=== PATIENT | female | born 1965 | race Caucasian/White ===

== ENCOUNTER 2019-11-01 06:24 | Inpatient (IN) ==
--- NOTE | 2019-10-22 14:03 | Anesthesiology Consultation ---
Date of Service October 22, 2019 Assessment & Plan (1) Encounter for pre-operative examination: COVID Status: As of nurse assessment 10/21, patient denies known exposure/sick contacts, symptoms, or testing for coronavirus. 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 Chart Review Chart Review: Acceptable Risk for Surgery and Patient NOT seen in Pre Admission Testing History Surgery Operation Date: 11/01/19 08:40 Proposed Procedures p Bilateral breast Mastectomy with Bilateral [place] Lymph Node Biopsy, Injection Only - Deon Craven MD, FACS Height/Weight Height: 5 ft 3 in Weight: 81.193 kg Allergies Allergy/AdvReac Type Severity Reaction Status Date / Time No Known Allergies Allergy Verified 10/22/19 12:04 Medications Home Medications Medication Instructions Recorded Confirmed Last Taken ascorbic acid (vitamin C) 500 mg 500 mg PO PM tab 08/02/19 10/22/19 Unknown tablet biotin 1,000 mcg chewable tablet 2,000 mcg PO PM tab 08/02/19 10/22/19 Unknown calcium-vitamin D3-vitamin K 500 1 tab PO PM 08/02/19 10/22/19 Unknown mg-100 unit-40 mcg chewable tablet letrozole 2.5 mg tablet 2.5 mg PO QAM 10/04/19 10/22/19 Unknown calcium carbonate-vitamin D3 1 cap PO PM 10/22/19 10/22/19 Unknown [Calcium 600 + D(3)] multivit with min-folic acid 200 mcg PO PM 10/22/19 10/22/19 Unknown [Women's Multivitamin Gummies] vitamin E 100 unit PO PM 10/22/19 10/22/19 Unknown Past Medical History Medical History Anxiety Cancer LEFT BREAST CANCER Cardiac murmur NO MURMUR NOTED PER ANESTHESIA EVALUATION ON 04/06/18 AT [facility] 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 Brother Family history of diabetes mellitus Unknown Bile duct carcinoma Past Surgical History Surgical History History of bilateral tubal ligation History of breast biopsy LEFT History of section X3 History of lumpectomy of left breast with senteniel nodes Social History Smoking Status: Former smoker tobacco type: cigarettes Smoking cigarettes per day: 20 Do You Dip or Chew Tobacco: No Smoking End Date: 2017 Hx Alcohol Use: No alcohol intake frequency: holidays/special occasions only Hx Substance Use: No substance use type: does not use Testing Laboratory Results 10/04/19 WBC: 6.91 H/H: 13.0/39.4 PLATELETS: 287 SODIUM: 141 POTASSIUM: 4.1 CHLORIDE: 109 CO2: 27 BUN: 10 CREATININE: 0.74 GLUCOSE: 104 Electrocardiogram Date: 10/19/19 Findings: + NSR @ (71bpm with sinus arrhythmia)
[~2019-11-01 06:24] MED LIST: CEFAZOLIN 2000MG 2,000 MG/15 ML SYR IV SCH; LR 15ML/HR IV SCH
--- NOTE | 2019-11-01 06:51 | History & Physical Report ---
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 Escamilla has followed the patient Allergies Allergy/AdvReac Type Severity Reaction Status Date / Time No Known Allergies Allergy Verified 10/22/19 12:04 Home Medications Home Medications Medication Instructions Recorded Confirmed Type ascorbic acid (vitamin C) 500 mg 500 mg PO PM tab 08/02/19 11/01/19 History tablet biotin 1,000 mcg chewable tablet 2,000 mcg PO PM tab 08/02/19 11/01/19 History calcium-vitamin D3-vitamin K 500 1 tab PO PM 08/02/19 11/01/19 History mg-100 unit-40 mcg chewable tablet letrozole 2.5 mg tablet 2.5 mg PO QAM 10/04/19 11/01/19 History calcium carbonate-vitamin D3 1 cap PO PM 10/22/19 11/01/19 History [Calcium 600 + D(3)] multivit with min-folic acid 200 mcg PO PM 10/22/19 11/01/19 History [Women's Multivitamin Gummies] vitamin E 100 unit PO PM 10/22/19 11/01/19 History Past Med/Surg History Medical History Anxiety Cancer LEFT BREAST CANCER Cardiac murmur NO MURMUR NOTED PER ANESTHESIA EVALUATION ON 04/06/18 AT [facility] 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 Other Information That Helps Us Care for You: No Feels Safe at Home: Yes Safety Concerns: Feels Safe At This Time Smoking Status: Former smoker (Quit 02/2018) Tobacco Type: cigarettes ; Cigarettes Per Day: 20 ; Do You Dip or Chew Tobacco: No ; Smoking End Date: 2017 ; Second Hand Exposure: No ; Tobacco Cessation Education Requested by Patient: No Hx Alcohol Use: No Hx Substance Use: No Review of Systems All systems reviewed & are unremarkable except as noted in HPI & below Physical Exam Constitutional: well developed and well nourished; no acute distress Eyes: + anicteric sclerae Respiratory: normal respiratory effort; no respiratory distress Cardiovascular: Rate/Rhythm: regular rate Gastrointestinal (Abdomen): Percussion/Palpation: abdomen soft Musculoskeletal: Gait: normal gait Skin: no rashes, warm and dry Neurologic: awake Psychiatric: Orientation: alert
[2019-11-01] MEDS ORDERED: METHYLENE BLUE 0.5% 10 ML VIAL ONE (08:15)
[2019-11-01] MEDS ORDERED: BUPIVACAINE 0.5 % 5 MG/1 ML MPF 30ML VIAL ONE (08:15)
[2019-11-01] MEDS ORDERED: MEPERIDINE HCL 25 MG/ML CARP/VIAL IV PRN (08:47)
[2019-11-01] MEDS ORDERED: ATROPINE SULFATE 0.1 MG/ML 10ML SYR IV PRN (08:47)
[2019-11-01] MEDS ORDERED: HYDROmorphone INJ 1 MG/ML SYRINGE IV PRN (08:47)
[2019-11-01] MEDS ORDERED: ONDANSETRON INJ 2 MG/ML 2 ML VIAL IV PRN ×2 (08:47→11:33)
[2019-11-01] MEDS ORDERED: PHENYLEPHRINE 100MCG/ML 5ML SYR IV PRN (08:47)
[2019-11-01] MEDS ORDERED: LABETALOL HCL IV 5 MG/ML 20ML IV PRN (08:47)
[2019-11-01] MEDS ORDERED: ePHEDrine sulfate 50 MG/ML AMP IV PRN (08:47)
[2019-11-01] MEDS ORDERED: SCOPOLAMINE 1.5 MG TDSY TD ONE ×2 (08:58→09:15)
[2019-11-01] MEDS ORDERED: MIDAZOLAM HCL 1 MG/ML 2ML VIAL ONE (09:12)
--- NOTE | 2019-11-01 09:18 | Nuclear Medicine Report ---
LYMPHOSCINTIGRAPHY OF THE BILATERAL BREASTS CLINICAL HISTORY: Recurrent left-sided breast cancer. PROCEDURE: RIGHT BREAST: Using standard sterile technique, 4 intradermal and one deep injection of 0.506 mCi of Lymphoseek was placed in the right breast. The patient tolerated the procedure well. There were no im mediate complications. The patient was subsequently transported to the surgical suite. No imaging was obtained at the referring physician's request. LEFT BREAST: Using standard sterile technique, 4 intradermal and one deep injection of 0.474 mCi of Lymphoseek was placed in the left breast. The patient tolerated the procedure well. There were no immediate complic ations. The patient was subsequently transported to the surgical suite. No imaging was obtained at th e referring physician's request. IMPRESSION: Completed bilateral breast injection of lymphoseek. No images were obtained.. ACT 112: Negative or not required by law. Electronically signed by: Kaveh Mendez M.D. 11/01/2019 9:16 AM
[2019-11-01] MEDS ORDERED: fentaNYL citrate 100 MCG/2 ML VIAL ONE ×2 (09:22→09:44)
[2019-11-01] MEDS ORDERED: PROPOFOL IV EMULSION 10 MG/ML 20 ML VIAL IV ONE (09:34)
[2019-11-01] MEDS ORDERED: LIDOCAINE HCL 2% 2 ML VIAL/AMP(20MG/ML) INFIL ONE (09:34)
[2019-11-01] MEDS ORDERED: DEXAMETHASONE SOD INJ 4 MG/ML VIAL ONE (09:34)
[2019-11-01] MEDS ORDERED: ONDANSETRON INJ 2 MG/ML 2 ML VIAL ONE (09:35)
[2019-11-01] MEDS ORDERED: PHENYLEPHRINE 100MCG/ML 5ML SYR ONE (10:03)
[2019-11-01] MEDS ORDERED: ESMOLOL HCL INJ 10 MG/ML 10ML VIAL IV ONE (10:43)
--- NOTE | 2019-11-01 11:27 | Post Operative Brief Note ---
PG Immediate Post Op with CF Date of Surgery November 01, 2019 Pre & Post Diagnosis Operation Date: 11/01/19 09:30 Pre-Op Diagnosis: Recurrent Left Breast DCIS Post-Op Diagnosis: Recurrent Left Breast DCIS I identified the patient and participated in the time-out.: Yes Procedure Operation Date: 11/01/19 09:30 Actual Procedures p Bilateral Breast Mastectomy with Bilateral [place] Lymph Node Biopsy(Bilateral) - Deon Craven MD, FACS Surgeon Deon Craven MD, FACS Geology Instructor Jordy Johnson Estimated Blood Loss 20 Findings Consistent with Post-Op Diagnosis Specimens Specimen Description: FS #1 - right sentinel lymph node Permanent specimens (sent fresh) A: right breast, silk suture-lateral B: left breast, silk suture-lateral, methylene blue inferior margin Drains Payan Catheter (16fr payan catheter placed without difficulty, payan demonstrates clear yellow urine. Output measured and recorded by anesthesia.) and Yoni-Hopson Drain (15fr x1 per side)
[2019-11-01] MEDS ORDERED: HYDROCODONE/ACETAMOPHEN 5/325MG TAB PO PRN (11:28)
[2019-11-01] MEDS ORDERED: MoRPHine SULFATE 2 MG/ML CARP IV PRN (11:28)
[2019-11-01] MEDS ORDERED: MoRPHine SULFATE 4 MG/ML 1 ML CARP\\VIAL IV PRN (11:28)
[2019-11-01] MEDS ORDERED: IBUPROFEN 600 MG TAB PO PRN (11:28)
[2019-11-01] MEDS ORDERED: ACETAMINOPHEN 325 MG TAB PO PRN (11:28)
[2019-11-01] MEDS ORDERED: PROMETHAZINE HCL 12.5 MG in SODIUM CHLORIDE 0.9% 50 ML IV PRN (11:33)
[2019-11-01] MEDS ORDERED: PROMETHAZINE HCL 25 MG in SODIUM CHLORIDE 0.9% 50 ML IV PRN (11:33)
--- NOTE | 2019-11-01 11:57 | Operative Report (OR) ---
DATE OF OPERATION: 11/01/2019 NAME OF THE OPERATION: Bilateral mastectomy with right sentinel lymph node biopsy. PREOPERATIVE DIAGNOSIS: Recurrent ductal carcinoma in situ of left breast. POSTOPERATIVE DIAGNOSIS: Recurrent ductal carcinoma in situ of left breast. STAFF SURGEON: Deon Craven MD. ASSISTANTS: Andreas Velasco PA-C and Monik Savage PA-C. ANESTHESIA: General LMA. DESCRIPTION OF PROCEDURE: The patient was brought in the operating room and placed on the operating table in supine position. Her chest was prepped and draped in usual fashion. The right side was approached first. Preoperatively, she had injections for sentinel lymph node biopsy. My assistants helped with prepping, draping, mastectomy, sentinel lymph node biopsy and closure of the wounds. Incision was made in the right axilla using 0.5% plain Marcaine to anesthetize skin and subcutaneous tissue. Dissection was carried very deep down into the axilla on the right side using the Neoprobe identifying the sentinel lymph node, which was sent for frozen section. The frozen section was negative. During the frozen section, we performed mastectomy on the right side, making an elliptical incision from sternum to axilla around the nipple areolar complex and then dissecting the breast tissue away from the subcutaneous tissue superiorly and inferiorly down to the pectoralis major muscle and then dissecting the breast tissue off the pectoralis major muscle. The right breast was marked with a silk suture lateral. At this point, the site was irrigated and then packing placed and a towel covering the right side. The left side was then approached. She has had prior lumpectomy with left axillary dissection and also chemoradiation after the right side. The radiation was also to the upper chest and axilla. Elliptical incision was made around the nipple areolar complex from sternum to axilla, being careful to incorporate the incision and scar from the prior lumpectomy, which was in the 6 o'clock position laterally. The tissue was edematous and somewhat thickened from the radiation. Dissection was carried down into the subcutaneous tissue and then the breast tissue dissected away from the subcutaneous tissue superiorly and inferiorly down to the pectoralis major muscle. Inferiorly, there was a significant amount of scar tissue and edema from her radiation and prior surgery. The left breast was marked with a long silk suture lateral. Also, with methylene blue inferior to the prior lumpectomy site. At this point, using the Neoprobe, I was unable to identify specific sentinel lymph node. I did not feel the morbidity was adequate or warranted to dissect into the left axilla from prior axillary dissection and radiation therapy. At this point, #15 round Yoni-Hopson drains were placed bilaterally, secured using 3-0 nylon suture. Subcutaneous tissue reapproximated in the axilla using 2-0 plain suture, breast tissue using 3-0 Vicryl suture, 4-0 nylon for the right axillary incision and then 4-0 Monocryl subcuticular with Steri-Strips for the breast. Dressings applied and then the patient was to be sent to the recovery room. I attest to the content of the Intraoperative Record and any orders documented therein. Any exception s are noted below.
[2019-11-01] MEDS ORDERED: ACETAMINOPHEN 1000 MG/100 ML IV IV ONE ×2 (11:59→12:02)
[2019-11-01] MEDS: fentaNYL citrate 100 MCG/2 ML VIAL IV PRN ×4 (12:10→12:44)
--- NOTE | 2019-11-01 13:01 | Anesthesiology Progress Note ---
Date of Service November 01, 2019 Anesthesia Post Procedure Vital Signs Vital Signs: Temp Pulse Pulse Resp BP BP Pulse Ox 11/01/19 12:50 36.5 C 61 14 125/73 100 11/01/19 12:40 36.5 C 56 L 18 121/78 18 L 11/01/19 12:30 55 L 19 124/87 100 11/01/19 12:20 61 13 138/86 100 11/01/19 12:10 68 17 144/93 H 100 11/01/19 12:00 36.6 C 87 18 144/83 H 100 11/01/19 07:03 36.8 C 69 18 137/86 100 Pain Intensity Left Breast: Pain Intensity: 3 Transfer of Care Handoff Completed per policy Notes Mental Status: alert / awake / arousable Patient Amnestic to Procedure: Yes Nausea / Vomiting: adequately controlled Pain: adequately controlled Airway Patency, RR, SpO2: stable & adequate BP & HR: stable & adequate Hydration State: stable & adequate Anesthetic Complications: no major complications apparent and Pt Satisfied with anesthetic care
[2019-11-01] MEDS: HYDROCODONE/ACETAMOPHEN 5/325MG TAB PO PRN ×2 (13:57→20:50)
[2019-11-01] MEDS ORDERED: SODIUM CHLORIDE 0.9% 1000ML 1,000 ML IV SCH (14:00)
--- NOTE | 2019-11-01 14:08 | Hospitalist Consultation ---
Date of Consultation November 01, 2019 Assessment & Plan (1) DCIS (ductal carcinoma in situ) of breast: (2) S/P bilateral mastectomy: This is a 54yo F with a PMH of recurrent ductal carcinoma in situ of left breast who is POD #0 s/p bilateral Breast Mastectomy with Bilateral [place] Lymph Node Biopsy by Dr. Craven. -POD #0 s/p bilateral Breast Mastectomy with Bilateral [place] Lymph Node Biopsy by Dr. Craven -Pt is doing well post-operatively -Per general surgery for pain control, wound care, anticoagulation and activities -Monitor H&H, continue incentive spirometry, regular diet as per primary service -Continue letrozole DVT Ppx: SQ heparin Code status: FULL PCP: Magdalena Caban PA-C Dispo: Per primary service Patient seen in collaboration with Dr. Tatum. Please see addendum. Supervising Physician Co-Signing Physician Notes I saw this patient with the physician energy assistant, I participated in the history, physical, review of systems, and physical exam. I reviewed the medications with the patient and the physician energy assistant and helped reconcile the medications. I helped take a detailed family and social history as well. I formulated the assessment and plan personally with the physician energy assistant and went over it with the patient. ROS-No Headache, No Visual Changes, No Nausea, No Vomiting, No Fever, No Chills, No Neck Pain or Stiffness, + Chest Pain, No Palpitations, No SOB, No FOSTER, No Cough, No Sputum, No Wheezing, No Abdominal Pain, No Diarrhea, No Hematemesis, No Hemoptysis, No Unexpected Weight Loss, No Flank pain, No Melena, No Hematochezia, No Frequency, No Urgency, No Burning, No Hematuria, No Rashes, No Diaphoresis. Appetite is Normal Physical Exam Gen-AAO x 3, NAD, Afebrile Head-NCAT, EOMI, PERRLA, Anicteric Sclera, No Posterior Pharyngeal Erythema Neck-Supple, No JVD, No Thyromegaly, No Masses, No LAD, No Bruits Lungs-Clear to Auscultation Bilaterally, No Rales, No Rhonchi, No Wheezing, No Crepitus Chest- Tender, No S4, +S1, +S2, No S3, No Murmurs, No Rubs, No Gallops, No Ectopy Abdomen-Soft, Bowel Sounds Present, Non Tender, Non Distended, No Hepatomegaly, No Splenomegaly, No Palpable Masses, No Rebound, No Rigidity, No Guarding Musculoskeletal-Full Range of Motion Bilaterally, No CVAT Extremities-No Cyanosis, No Clubbing, No Edema Nuero-Cranial Nerves II-XII grossly intact, Motor WNL, DTRs WNL, Strength WNL, Non Focal Psych-Normal Mood History of Present Illness Reason for Consultation: post op medical mgmt Attending Physician: Deon Craven MD, [facility] History of Present Illness This is a 54yo F with a PMH of recurrent ductal carcinoma in situ of left breast who is POD #0 s/p bilateral Breast Mastectomy with Bilateral [place] Lymph Node Biopsy by Dr. Craven. Patient is doing well post-operatively. Has post op pain and just received pain medication. Denies fever, chills, headache, lightheadedness, visual changes, sore throat, cough, chest pain, palpitations, shortness of breath, abdominal pain, nausea, vomiting, dysuria, constipation or diarrhea. Last bowel movement was this morning. Patient was found to have invasive ductal carcinoma of the left breast from left lumpectomy with sentinel lymph node biopsy and left axillary dissection in April 2018. Underwent chemotherapy and radiation of her left breast supraclavicular nodes and left axilla. Follows with Dr. Escamilla for medical oncology. Allergies Allergy/AdvReac Type Severity Reaction Status Date / Time No Known Allergies Allergy Verified 10/22/19 12:04 Home Medications Home Medications Medication Instructions Recorded Confirmed Type ascorbic acid (vitamin C) 500 mg 500 mg PO PM tab 08/02/19 11/01/19 History tablet biotin 1,000 mcg chewable tablet 2,000 mcg PO PM tab 08/02/19 11/01/19 History calcium-vitamin D3-vitamin K 500 1 tab PO PM 08/02/19 11/01/19 History mg-100 unit-40 mcg chewable tablet letrozole 2.5 mg tablet 2.5 mg PO QAM 10/04/19 11/01/19 History calcium carbonate-vitamin D3 1 cap PO PM 10/22/19 11/01/19 History [Calcium 600 + D(3)] multivit with min-folic acid 200 mcg PO PM 10/22/19 11/01/19 History [Women's Multivitamin Gummies] vitamin E 100 unit PO PM 10/22/19 11/01/19 History Patient History Medical History Anxiety 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 Physical Exam Physical Exam: General Appearance: WD/WN, vitals as above, NAD, sitting up in bed, pleasant, conversing easily Head: normocephalic, atraumatic Eyes: normal inspection, PERRL, conjunctivae normal, anicteric sclerae ENT: external ear and nose normal, oropharynx normal Neck: trachea midline, normal visual inspection Respiratory: normal respiratory effort, lungs clear to auscultation, no wheeze, rales, rhonchi. No accessory muscle use Cardiovascular: regular rate, rhythm, no murmur, normal peripheral pulses Chest: normal inspection of chest. Dressings clean, dry, intact Abdomen/GI: normal bowel sounds, soft, nontender, no hepatosplenomegaly Extremities/Musculoskeletal: no cyanosis or clubbing Neurologic: PERRL, EOMI, CN's II-XI intact bilaterally and moves all extremities Psychiatric: A+Ox3, euthymic affect Skin: no rashes, normal color, warm/dry Results & Data Results & Data ([facility]) Vital Signs (Past 12 Hours) Vital Signs Temp Pulse Pulse Resp BP BP Pulse Ox 11/01/19 13:37 37 C 68 18 124/69 11/01/19 13:20 36.5 C 60 12 114/75 100 11/01/19 13:10 36.5 C 72 18 110/63 11/01/19 13:00 36.5 C 60 14 120/58 L 11/01/19 12:50 36.5 C 61 14 125/73 11/01/19 12:40 36.5 C 56 L 18 121/78 18 L 11/01/19 12:30 55 L 19 124/87 11/01/19 12:20 61 13 138/86 11/01/19 12:10 68 17 144/93 H 11/01/19 12:00 36.6 C 87 18 144/83 H 11/01/19 07:03 36.8 C 69 18 137/86 100
[2019-11-01] MEDS ORDERED: CHECK SCOPOLAMINE PATCH PLACEMENT SCH (16:00)
[2019-11-01] MEDS: CEFAZOLIN 1000MG 1,000 MG/7.5 ML SYR IV SCH (16:12)
[2019-11-01] MEDS: CALCIUM 600MG + VIT D 400 IU TAB PO SCH (20:50)
[2019-11-01] MEDS ORDERED: CALCIUM VITAMIN D3 VITAMIN K PO SCH (21:00)
[2019-11-02] MEDS: CEFAZOLIN 1000MG 1,000 MG/7.5 ML SYR IV SCH ×4 (00:37→23:44)
[2019-11-02] MEDS: HYDROCODONE/ACETAMOPHEN 5/325MG TAB PO PRN ×4 (00:38→16:56)
[2019-11-02 05:48] LABS: Eosinophils # (auto) 0.02 K/uL (0-0.5); Eosinophils % (auto) 0.1 %; Hematocrit (blood only) 34.8 % (37-47); Hemoglobin 11.4 g/dL (12.0-16.0); Immature Granulocytes # (auto) 0.03 K/uL (0.00-0.02); Immature Granulocytes % (auto) 0.2 %; Lymphocytes # (auto) 1.49 K/uL (1.2-3.4); Lymphocytes % (auto) 11.1 %; Mean Corpuscular Hemoglobin 29.8 pg (25-34); Mean Corpuscular Hgb Conc 32.8 g/dL (32-36); Mean Corpuscular Volume 91.1 fL (80-100); Mean Platelet Volume 9.4 fL (7.4-10.4); Monocytes # (auto) 1.04 K/uL (0.11-0.59); Monocytes % (auto) 7.8 %; Neutrophils # (auto) 10.79 K/uL (1.4-6.5); Neutrophils % (auto) 80.8 %; Platelet Count 275 K/uL (130-400); RDW Standard Deviation 43.1 fL (36.4-46.3); Red Blood Count 3.82 M/uL (4.2-5.4); White Blood Count 13.37 K/uL (4.8-10.8)
[2019-11-02] MEDS ORDERED: COUGH DROP (SUGAR FREE) LOZ 24 LOZ/1 BOX BUCCAL PRN (05:51)
[2019-11-02] MEDS ORDERED: COUGH DROP (SUGAR FREE) LOZ 24 LOZ/1 BOX BUCCAL ONE (05:54)
[2019-11-02 06:15] LABS: Albumin Level 3.1 gm/dl (3.4-5.0); BUN Creatinine Ratio 13.3 (10-20); Calcium 8.6 mg/dl (8.5-10.1); Creatinine Clr Calc Pharmacy 82.3 ml/min; Est GFR (African American) 97.6; Est GFR (Non-African American) 84.2; Potassium 4.1 mmol/L (3.5-5.1)
[2019-11-02 06:18] LABS: Albumin Globulin Ratio 0.9 (0.9-2); Bilirubin,Total 0.3 mg/dl (0.2-1); Globulin 3.5 gm/dl (2.5-4.0); Phosphorus 3.1 mg/dl (2.5-4.9); Total Protein 6.6 gm/dl (6.4-8.2)
--- NOTE | 2019-11-02 06:35 | Surgery Progress Note ---
Date of Service November 02, 2019 Assessment & Plan (1) S/P bilateral mastectomy: some mild pain expected drainage wounds stable mobilize today IV atbx, pain control likely d/c tomorrow with drains, visiting nurse Results & Data Vital Signs (Past 12 Hours) Vital Signs Temp Pulse Resp BP Pulse Ox 11/01/19 22:53 37.0 C 58 L 16 97/60 L 96 PG Care Time/CCT Total # of Minutes Spent Total Time Spent with Patient: Total time spent is greater than 50% in coordination of care (as documented) at patient's floor/unit and/or counseling patient: Coding Level of Care Code None Diagnoses S/P bilateral mastectomy Z90.13
[2019-11-02] MEDS: LETROZOLE 2.5 MG TAB PO SCH (07:37)
--- NOTE | 2019-11-02 09:11 | Hospitalist Progress Note ---
Date of Service November 02, 2019 Assessment & Plan (1) DCIS (ductal carcinoma in situ) of breast: (2) S/P bilateral mastectomy: This is a 54yo F with a PMH of recurrent ductal carcinoma in situ of left breast who is s/p bilateral Breast Mastectomy with Bilateral [place] Lymph Node Biopsy by Dr. Craven. -s/p bilateral Breast Mastectomy with Bilateral [place] Lymph Node Biopsy by Dr. Craven on 10/31 labs checked Resume Post Op Care per Surgery Protocol Incentive Spirometry 10x per Hour Resume Relative Home Meds Where Appropriate PT/OT with appropriate fall precautions Transition from IV to PO Pain control DVT Prophylaxis Per Surgery Protocol Monitor Daily Labs -Continue letrozole DVT Ppx: SQ heparin Code status: FULL PCP: Magdalena Caban PA-C Dispo: Per primary service ROS-No Headache, No Visual Changes, No Nausea, No Vomiting, No Fever, No Chills, No Neck Pain or Stiffness, + Chest Pain, No Palpitations, No SOB, No FOSTER, No Cough, No Sputum, No Wheezing, No Abdominal Pain, No Diarrhea, No Hematemesis, No Hemoptysis, No Unexpected Weight Loss, No Flank pain, No Melena, No Hematochezia, No Frequency, No Urgency, No Burning, No Hematuria, No Rashes, No Diaphoresis. Appetite is Normal Physical Exam Gen-AAO x 3, NAD, Afebrile Head-NCAT, EOMI, PERRLA, Anicteric Sclera, No Posterior Pharyngeal Erythema Neck-Supple, No JVD, No Thyromegaly, No Masses, No LAD, No Bruits Lungs-Clear to Auscultation Bilaterally, No Rales, No Rhonchi, No Wheezing, No Crepitus Chest-Sore Chest, ice packs help, No S4, +S1, +S2, No S3, No Murmurs, No Rubs, No Gallops, No Ectopy Abdomen-Soft, Bowel Sounds Present, Non Tender, Non Distended, No Hepatomegaly, No Splenomegaly, No Palpable Masses, No Rebound, No Rigidity, No Guarding Musculoskeletal-Full Range of Motion Bilaterally, No CVAT Extremities-No Cyanosis, No Clubbing, No Edema Nuero-Cranial Nerves II-XII grossly intact, Motor WNL, DTRs WNL, Strength WNL, Non Focal Psych-Normal Mood Admission and Anticipated Discharge Date Admission Date: November 01, 2019 Results & Data Results & Data ([facility]) Vital Signs (Past 12 Hours) Vital Signs Temp Pulse Resp BP Pulse Ox 11/02/19 07:15 36.8 C 67 18 109/69 94 11/01/19 22:53 37.0 C 58 L 16 97/60 L 96
[2019-11-02] MEDS: HEPARIN SOD 5,000 UNIT/0.5 ML VIAL SQ SCH ×2 (09:38→20:23)
[2019-11-02] MEDS: CALCIUM 600MG + VIT D 400 IU TAB PO SCH (20:22)
[2019-11-02] MEDS ORDERED: IBUPROFEN 200 MG/10 ML UDC PO PRN (23:56)
[2019-11-03 06:47] LABS: BUN Creatinine Ratio 12.2 (10-20); Creatinine Clr Calc Pharmacy 74.8 ml/min; Est GFR (African American) 86.9
[2019-11-03 07:18] VITALS: TEMP 98.1; O2SAT 100
[2019-11-03] MEDS: CEFAZOLIN 1000MG 1,000 MG/7.5 ML SYR IV SCH (07:32)
[2019-11-03 07:40] VITALS: BP 103/67
--- NOTE | 2019-11-03 08:14 | Hospitalist Progress Note ---
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 Craven. -s/p bilateral Breast Mastectomy with Bilateral [place] Lymph Node Biopsy by Dr. Craven on 10/31 labs checked DC home from IM standpoint DVT Ppx: SQ heparin Code status: FULL PCP: Magdalena Caban PA-C Dispo: Per primary service ROS-No Headache, No Visual Changes, No Nausea, No Vomiting, No Fever, No Chills, No Neck Pain or Stiffness, Less Chest Pain, No Palpitations, No SOB, No FOSTER, No Cough, No Sputum, No Wheezing, No Abdominal Pain, No Diarrhea, No Hematemesis, No Hemoptysis, No Unexpected Weight Loss, No Flank pain, No Melena, No Hematochezia, No Frequency, No Urgency, No Burning, No Hematuria, No Rashes, No Diaphoresis. Appetite is Normal Physical Exam Gen-AAO x 3, NAD, Afebrile Head-NCAT, EOMI, PERRLA, Anicteric Sclera, No Posterior Pharyngeal Erythema Neck-Supple, No JVD, No Thyromegaly, No Masses, No LAD, No Bruits Lungs-Clear to Auscultation Bilaterally, No Rales, No Rhonchi, No Wheezing, No Crepitus Chest-Chest less tender, ice packs help, No S4, +S1, +S2, No S3, No Murmurs, No Rubs, No Gallops, No Ectopy Abdomen-Soft, Bowel Sounds Present, Non Tender, Non Distended, No Hepatomegaly, No Splenomegaly, No Palpable Masses, No Rebound, No Rigidity, No Guarding Musculoskeletal-Full Range of Motion Bilaterally, No CVAT Extremities-No Cyanosis, No Clubbing, No Edema Nuero-Cranial Nerves II-XII grossly intact, Motor WNL, DTRs WNL, Strength WNL, Non Focal Psych-Normal Mood Admission and Anticipated Discharge Date Admission Date: November 01, 2019 Results & Data Results & [facility] Vital Signs (Past 12 Hours) Vital Signs Temp Pulse Resp BP Pulse Ox 11/03/19 07:40 103/67 11/03/19 07:17 36.7 C 55 L 18 94/57 L 100 11/02/19 23:11 37.1 C 67 15 96/60 L 98
--- NOTE | 2019-11-03 09:13 | Surgery Progress Note ---
Date of Service November 03, 2019 Assessment & Plan (1) S/P bilateral mastectomy: POD 2 bilat mastectomy ok for d/c with home health as above. ready for d/c. instructions given. Subjective feeling well, ready for discharge Physical Exam Chest (Breasts): Additional Comments: JAROCHO drainage serous Results & Data Vital Signs (Past 12 Hours) Vital Signs Temp Pulse Resp BP Pulse Ox 11/03/19 07:40 103/67 11/03/19 07:17 36.7 C 55 L 18 94/57 L 100 11/02/19 23:11 37.1 C 67 15 96/60 L 98 PG Care Time/CCT Total # of Minutes Spent Total Time Spent with Patient: Total time spent is greater than 50% in coordination of care (as documented) at patient's floor/unit and/or counseling patient: Coding Level of Care Code None Diagnoses S/P bilateral mastectomy Z90.13
[2019-11-03] MEDS: LETROZOLE 2.5 MG TAB PO SCH (09:33)
[2019-11-03] MEDS: HEPARIN SOD 5,000 UNIT/0.5 ML VIAL SQ SCH (10:19)
[2019-11-03 10:24] VITALS: PULSE 68
[2019-11-03] MEDS: HYDROCODONE/ACETAMOPHEN 5/325MG TAB PO PRN (11:28)
--- NOTE | 2019-11-05 11:02 | Discharge Summary (DS) ---
PRINCIPAL DIAGNOSIS: Recurrent left breast cancer. PROCEDURES: The patient underwent bilateral mastectomy. HISTORY OF PRESENT ILLNESS: The patient is a 54-year-old female with biopsy proven recurrent DCIS of the left breast with prior surgery. She elected for bilateral mastectomy. HOSPITAL COURSE: She was brought into the hospital on 11/01/2019 where she underwent bilateral mastectomy with right sentinel lymph node biopsy. She did very well, was kept for 2 nights and progressed well and was felt stable on 11/03/2019 to be discharged home to be followed in the surgical clinic within 1 week.
== END 2019-11-03 12:04 | disposition home health service (06) | DRG 581 ==
LOC: ASU 06:24 → 3N 11:28
DX: D05.12 Intraductal carcinoma in situ of left breast; Z80.0 Family history of malignant neoplasm of digestive organs; Q15.8 Other specified congenital malformations of eye; E66.9 Obesity, unspecified; Z51.81 Encounter for therapeutic drug level monitoring; Z87.891 Personal history of nicotine dependence; Z79.899 Other long term (current) drug therapy; Z68.31 Body mass index [BMI] 31.0-31.9, adult

== ENCOUNTER 2020-11-17 08:46 | Inpatient (IN) ==
[2020-11-17] MEDS ORDERED: LEVALBUTEROL HCL 1.25 MG/3 ML NEB NEB STA ×2 (09:22→11:15)
[2020-11-17] MEDS ORDERED: methylPREDNISolone 125 MG/2 ML VIAL IV STA (09:24)
[2020-11-17 09:39] LABS: Hematocrit (blood only) 42.7 % (37-47); Hemoglobin 14.2 g/dL (12.0-16.0); Mean Corpuscular Hemoglobin 28.8 pg (25-34); Mean Corpuscular Hgb Conc 33.3 g/dL (32-36); Mean Corpuscular Volume 86.6 fL (80-100); Mean Platelet Volume 10.2 fL (7.4-10.4); Platelet Count 112 K/uL (130-400); RDW Coefficient of Variation 13.8 % (11.5-14.5); RDW Standard Deviation 43.1 fL (36.4-46.3); Red Blood Count 4.93 M/uL (4.2-5.4); White Blood Count 18.91 K/uL (4.8-10.8)
[2020-11-17 09:54] LABS: Partial Thromboplastin Ratio 0.8; Partial Thromboplastin Time 20.9 Seconds (21.0-31.0); Prothrombin Time 10.3 Seconds (9.0-12.0)
[2020-11-17 09:55] LABS: ALC (manual) 0.81 K/uL (1.2-3.4); ANC (manual) 17.26 K/uL (1.4-6.5); Lymphocytes # (manual) 0.81 K/uL (1.2-3.4); Lymphocytes % (manual) 4.3 %; Metamyelocytes # (manual) 0.17 K/uL (0-0); Metamyelocytes % (manual) 0.9 %; Monocytes # (manual) 0.17 K/uL (0.11-0.59); Monocytes % (manual) 0.9 %; Myelocytes # (manual) 0.49 K/uL (0-0); Myelocytes % (manual) 2.6 %; Neutrophils # (manual) 17.26 K/uL (1.4-6.5); Neutrophils % (manual) 91.3 %
[2020-11-17 10:12] LABS: Alanine Aminotransferase 215 U/L (12-78); Albumin Globulin Ratio 0.7 (0.9-2); Albumin Level 2.7 gm/dl (3.4-5.0); Alkaline Phosphatase 178 U/L (45-117); BUN Creatinine Ratio 40.1 (10-20); Bilirubin,Total 0.4 mg/dl (0.2-1); Blood Urea Nitrogen 21 mg/dl (7-18); Calcium 8.2 mg/dl (8.5-10.1); Carbon Dioxide 28 mmol/L (21-32); Chloride 102 mmol/L (98-107); Creatine Kinase MB 1.2 ng/ml (0.5-3.6); Creatinine Clr Calc Pharmacy 118.1 ml/min; Est GFR (African American) 124.8 ml/min; Est GFR (Non-African American) 107.6 ml/min; Globulin 3.8 gm/dl (2.5-4.0); Glucose 86 mg/dl (70-99); NT Pro B Type Natriuretic Pept 74 pg/ml (0-900); Total Protein 6.5 gm/dl (6.4-8.2); Troponin I < 0.015 ng/ml (0-0.045)
[2020-11-17 10:27] LABS: Aspartate Aminotransferase 143 U/L (15-37); Creatine Kinase 481 U/L (26-192); Potassium 4.2 mmol/L (3.5-5.1); Sodium 137 mmol/L (136-145)
[2020-11-17] MEDS ORDERED: OPTIRAY 350 500ml IV ONE (10:39)
[2020-11-17 11:05] LABS: Magnesium 2.3 mg/dl (1.8-2.4)
--- NOTE | 2020-11-17 11:31 | CT Scan Report ---
CHEST CTA for PULMONARY ARTERIES CT DOSE: 454.21 mGy.cm HISTORY: Shortness of breath. Difficulty breathing. TECHNIQUE: Multiaxial CT images of the chest were performed following the intravenous administration of contrast to evaluate the pulmonary arteries. Maximal intensity projection images were also obtaine d. A dose lowering technique was utilized adhering to the principles of ALARA. COMPARISON STUDY: PET CT 11/10/2020. FINDINGS: Multiple hepatic and adrenal glands metastases are again noted. There is a trace right pleu ral effusion, unchanged. Normal caliber thoracic aorta with no evidence for dissection. The heart is normal in size. No pericardial effusion. Mild narrowing of the right lobe are pulmonary arteries due to mass effect from the adjacent hilar lymphadenopathy. However, no filling defects within the pulmon clair arteries to suggest a pulmonary embolus. A right Port-A-Cath terminates at the right atrium. Post operative changes consistent with prior bilateral mastectomies. The mediastinal and bilateral hilar l ymphadenopathy is again noted. Normal caliber esophagus. Multiple skeletal metastases are again noted . Focal groundglass airspace opacity within the right lung apex with interlobular septal thickening h as slightly progressed. Diffuse interstitial thickening within the right lung which could represent l ymphangitic spread of tumor. There are scattered irregular densities/nodules with the largest in the right upper lobe measuring 1.1 cm on image 199. These likely represent areas of metastatic disease. F ocal peripheral consolidation within the base of the left lower lobe on image 93 measuring 4.7 cm. Th is is also unchanged. This does not demonstrate significant FDG uptake on the prior PET scan and ther efore may represent atelectasis. No pneumothorax. IMPRESSION: 1. No evidence for pulmonary embolus. There is mild mass effect along the right lobar pulmonary arter ies due to the right hilar lymphadenopathy. 2. Redemonstration of extensive metastatic disease within the chest which includes the mediastinal/hi lar lymphadenopathy, scattered pulmonary nodules, and skeletal metastatic disease. 3. Hepatic and adrenal gland metastases are again noted. 4. Trace right pleural effusion, unchanged. 5. Interstitial thickening within the right lung remains unchanged and is concerning for lymphangitic spread of tumor. 6. Slight progression of the groundglass airspace opacities and interlobular septal thickening within the right lung apex. This nonspecific could be due to post radiation change or a superimposed pneumo nitis. ACT 112: Negative or not required by law. Electronically signed by: Gary Mcneal M.D. 11/17/2020 11:30 AM
[2020-11-17] MEDS ORDERED: PIPERACILLIN/TAZOBACTAM 4.5 GM/120 ML BAG IV ONE (11:54)
[2020-11-17] MEDS ORDERED: PIPERACILL/TAZOBAC CONSULT ACTIVE PRN (11:54)
[2020-11-17] MEDS ORDERED: levoFLOXacin/D5W 750 MG/150 ML BAG IV STA (11:54)
--- NOTE | 2020-11-17 12:44 | Electrocardiogram Report ---
Test Reason : Blood Pressure : / mmHG Vent. Rate : 093 BPM Atrial Rate : 093 BPM P-R Int : 112 ms QRS Dur : 080 ms QT Int : 362 ms P-R-T Axes : 070 013 028 degrees QTc Int : 450 ms Poor data quality, interpretation may be adversely affected Normal sinus rhythm Nonspecific ST abnormality Abnormal ECG No previous ECGs available Confirmed by Fred Fontenot ([id number]) on 11/17/2020 12:43:45 PM Referred By: ED Confirmed By:John Fontenot
--- NOTE | 2020-11-17 13:10 | History & Physical Report ---
Date of Service November 17, 2020 Assessment & Plan (1) Dyspnea: CTA chest reviewed - most of the findings are due to metastatic disease from her breast cancer. There may be a component of pneumonia in the right lung but uncertain. No PEs. No large pleural effusion. I spoke with Dr Polk from pulmonary who will consult in am. In meantime will increase her dexamethasone to 4mg q6h, continue abx in the form of levaquin 750mg daily (received first dose in ER today), add mucinex & tessalon, and provide nebs as she reported some relief of symptoms with such. I don't see any evidence of complicating CHF. (2) Breast cancer metastasized to brain: today was day #3 of 10 of whole brain xrt. follows with Dr Pandey. will consult Dr Pandey's team to consider continuing her radiation treatments while hospitalized. see scanned MRI report in chart for details re: her brain mets. 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 fortunately her mind is clear and memory is intact. cont steroids. cont keppra for seizure prophy. (3) Abnormal CT scan, chest: most findings on Chest CT today are likely due to her cancer itself. doubt radiation pneumonitis. mild infectious pneumonia is possible as noted today. 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 trend (10) Abnormal LFTs: likely 2nd to worsening liver mets trend (11) Elevated creatine kinase level: etiology? no recent fall or musculoskeletal injury simply repeat CPK in am not on meds to cause such (12) DVT prophylaxis: if ok with rad onc would add chemical DVT proph in light of high risk of VTE History of Present Illness Chief Complaint: dyspnea Primary Care Provider: Nino Steward Capp, DO 55yo female with stage 4 breast ca presents with progressive FOSTER for about 1 week. She has had associated dry cough, PND, and orthopnea. No weight gain. no chest pain or chest discomfort. no prior h/o chronic lung disease. has albuterol inhaler at home but hasn't helped her symptoms. no fevers. good appetite. no sick contacts. today was 3rd day of whole brain radiation for recently diagnosed multiple brain mets. follows with Dr Pandey in the rad onc clinic. she is hopeful she can receive her radiation tomorrow while hospitalized. lastly, recently started on decadron TID for her brain mets. 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 Former smoker Lymph edema Malignant neoplasm of lower-outer quadrant of left breast of female, estrogen receptor positive Nausea Obesity Ocular migraine Osteoarthritis Pneumonia Port-A-Cath in place Recurrent cancer of left breast Surgical History History of bilateral tubal ligation History of section X3 History of lumpectomy of left breast with senteniel nodes S/P bilateral mastectomy Family History (Updated 11/17/20 @ 13:21 by Star Borden) Sister Family history of diabetes mellitus Mother , age 67 Family history of diabetes mellitus [place] cancer Father , does not know anything about him No problems noted. Brother Family history of diabetes mellitus Unknown Bile duct carcinoma Denies family history of Breast cancer Social History Smoking Status: Former smoker Tobacco Type: Cigarettes Years Smoked: 20; Cigarettes Per Day: 20; Smoking End Date: 2017; Second Hand Exposure: No; Do You Dip or Chew Tobacco: No; Tobacco Cessation Education Requested by Patient: No Hx Alcohol Use: No Hx Substance Use: No Preferred Language: Arabic Communication Ability: Effective Visual Impairment: No Limitations Hearing Ability: Normal Workers Compensation Analyst Required: No Beliefs That Will Affect Care: None marital status: Current Living Situation: Spouse Current Living Situation Comment: lives with current occupational status: employed 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 How many Children do You have: 3 How many Children do You have Comment: 1 is (had Trisomy 18) Other Information That Helps Us Care for You: No Feels Safe at Home: Yes during the past year weight has: remained stable Assistive Devices: Oxygen - Continuous Review of Systems Constitutional: + fatigue; no fever, no chills, no anorexia and no weight loss Eyes: + worsening vision Ear, Nose, Mouth, Throat: no nasal congestion, no sore throat and no dysphagia no loss of taste or smell Respiratory: + cough and + dyspnea on exertion; no hemoptysis Cardiovascular: + orthopnea and + paroxysmal nocturnal dyspnea; no chest pain and no edema Gastrointestinal: no abdominal pain, no nausea, no vomiting and no diarrhea/loose stools Genitourinary: no dysuria Musculoskeletal: no back pain, no neck pain and no joint pain Integumentary: no rash Neurologic: + generalized weakness (legs only; arms are normal ); no numbness and no paresthesia Psychiatric: + abnormal sleep pattern; no difficulty concentrating Endocrine: no diabetes Hematologic / Lymphatic: no easy bleeding and no easy bruising Physical Exam Constitutional: no acute distress and no altered mental status anxious Eyes: PERRL and EOM intact bilaterally small tissue growth on surface of right eye, lateral aspect, encroaching on iris ENMT: Mouth: + oral mucosal abnormality (severe thrush most of oral mucosa ) facial nerve palsy (7th nerve) LEFT Neck: trachea midline, no thyromegaly Respiratory: no respiratory distress Auscultation: + diminished lung sounds (Bases ) and + rales (Bases b/l, very minimal ) Cardiovascular: RRR, no murmur, no edema Heart Sounds: normal S1 and normal S2 Vessels: posterior tibial pulses present and dorsalis pedis pulses present; no JVD Chest (Breasts): Additional Comments: right upper chest port clean/dry Gastrointestinal (Abdomen): normal bowel sounds, soft, nontender, no hepatosplenomegaly Musculoskeletal: no cyanosis or clubbing, extremities motor strength 5/5 Skin: no rashes, warm and dry Neurologic: deep tendon reflexes 2+ bilaterally and moves all extremities Cranial Nerves: + abnormal facial strength (Left BELLS PALSY ) Psychiatric: Orientation: alert and oriented x 3 Lymphatic: no cervical lymphadenopathy Results & Data Results & Data ([facility]) Vital Signs (Past 12 Hours) Vital Signs Temp Pulse Pulse Resp BP Pulse Ox 11/17/20 12:15 88 23 89 L 11/17/20 12:01 94 H 24 91 11/17/20 12:00 93 H 25 H 128/86 92 11/17/20 11:45 90 23 100 11/17/20 11:43 88 18 95 11/17/20 11:30 82 26 H 91 11/17/20 11:20 96 11/17/20 11:15 86 23 92 11/17/20 11:01 112 H 17 90 11/17/20 11:00 113 H 16 127/79 90 11/17/20 10:47 101 H 24 92 11/17/20 10:33 97 11/17/20 10:30 92 H 29 H 93 11/17/20 10:29 102 H 24 115/77 92 11/17/20 10:15 96 H 30 H 93 11/17/20 10:06 96 11/17/20 10:00 108 H 25 H 115/77 94 11/17/20 09:49 83 18 93 11/17/20 09:45 103 H 26 H 91 11/17/20 09:34 21 96 11/17/20 09:30 97 H 30 H 91 11/17/20 09:15 97 H 29 H 93 11/17/20 09:10 91 H 29 H 94 11/17/20 09:07 94 H 29 H 130/83 93 11/17/20 08:52 36.9 C 105 H 22 134/80 95 Laboratory Results Microbiology 11/17/20 10:02 Blood Aerobic Blood Culture - Pending 11/17/20 10:02 Blood Anaerobic Blood Culture - Pending 11/17/20 09:29 Blood Aerobic Blood Culture - Pending 11/17/20 09:29 Blood Anaerobic Blood Culture - Pending Labs 11/17/20 11/17/20 11/17/20 09:29 09:29 09:29 WBC 18.91 H RBC 4.93 Hgb 14.2 Hct 42.7 MCV 86.6 MCH 28.8 MCHC 33.3 RDW Std Deviation 43.1 RDW Coeff of Silverio 13.8 Plt Count 112 L MPV 10.2 Neutrophils % (Manual) 91.3 Lymphocytes % (Manual) 4.3 Monocytes % (Manual) 0.9 Metamyelocytes % (Man) 0.9 Myelocytes % (Man) 2.6 Neutrophils # (Manual) 17.26 H Total Absolute Neuts 17.26 H Lymphocytes # (Manual) 0.81 L Total Abs Lymphocytes 0.81 L Monocytes # (Manual) 0.17 Metamyelocytes # (Man) 0.17 H Myelocytes # (Manual) 0.49 H PT 10.3 INR 1.0 APTT 20.9 L PTT Ratio 0.8 Sodium 137 Potassium 4.2 Chloride 102 Carbon Dioxide 28 Anion Gap 7.0 BUN 21 H Creatinine 0.53 L Est Cr Clr Drug Dosing 118.1 Est GFR ( Amer) 124.8 Est GFR (Non-Af Amer) 107.6 BUN/Creatinine Ratio 40.1 H Glucose 86 Calcium 8.2 L Magnesium 2.3 Total Bilirubin 0.4 AST 143 H ALT 215 H Alkaline Phosphatase 178 H Total Creatine Kinase 481 H CK-MB (CK-2) 1.2 CK/CKMB % Calc 0.2 Troponin I < 0.015 NT-Pro-B Natriuret Pep 74 Total Protein 6.5 Albumin 2.7 L Globulin 3.8 Albumin/Globulin Ratio 0.7 L Urine Color Urine Appearance Urine pH Ur Specific [place] Urine Protein Urine Glucose (UA) Urine Ketones Urine Blood Urine Nitrite Urine Bilirubin Urine Urobilinogen Ur Leukocyte Esterase Urine WBC (Auto) Urine RBC (Auto) U Hyaline Cast (Auto) U Epithel Cells (Auto) Urine Bacteria (Auto) COVID-19 Eval Order SARS-CoV-2 (PCR) 11/17/20 11/17/20 11/17/20 09:40 09:40 14:25 WBC RBC Hgb Hct MCV MCH MCHC RDW Std Deviation RDW Coeff of Silverio Plt Count MPV Neutrophils % (Manual) Lymphocytes % (Manual) Monocytes % (Manual) Metamyelocytes % (Man) Myelocytes % (Man) Neutrophils # (Manual) Total Absolute Neuts Lymphocytes # (Manual) Total Abs Lymphocytes Monocytes # (Manual) Metamyelocytes # (Man) Myelocytes # (Manual) PT INR APTT PTT Ratio Sodium Potassium Chloride Carbon Dioxide Anion Gap BUN Creatinine Est Cr Clr Drug Dosing Est GFR ( Amer) Est GFR (Non-Af Amer) BUN/Creatinine Ratio Glucose Calcium Magnesium Total Bilirubin AST ALT Alkaline Phosphatase Total Creatine Kinase CK-MB (CK-2) CK/CKMB % Calc Troponin I NT-Pro-B Natriuret Pep Total Protein Albumin Globulin Albumin/Globulin Ratio Urine Color Yellow Urine Appearance Clear Urine pH 5.0 Ur Specific [place] > 1.045 H Urine Protein Negative Urine Glucose (UA) Negative Urine Ketones Negative Urine Blood Negative Urine Nitrite Negative Urine Bilirubin Negative Urine Urobilinogen Negative Ur Leukocyte Esterase Trace H Urine WBC (Auto) 5-10 H Urine RBC (Auto) 0-4 U Hyaline Cast (Auto) 1-5 U Epithel Cells (Auto) >30 H Urine Bacteria (Auto) Negative COVID-19 Eval Order Covid19 at [facility] SARS-CoV-2 (PCR) NEGATIVE Diagnostic Findings Chest CTA 11/17/20 09:22 CHEST CTA for PULMONARY ARTERIES CT DOSE: 454.21 mGy.cm HISTORY: Shortness of breath. Difficulty breathing. TECHNIQUE: Multiaxial CT images of the chest were performed following the intravenous administration of contrast to evaluate the pulmonary arteries. Maximal intensity projection images were also obtained. A dose lowering technique was utilized adhering to the principles of ALARA. COMPARISON STUDY: PET CT 11/10/2020. FINDINGS: Multiple hepatic and adrenal glands metastases are again noted. There is a trace right pleural effusion, unchanged. Normal caliber thoracic aorta with no evidence for dissection. The heart is normal in size. No pericardial effusion. Mild narrowing of the right lobe are pulmonary arteries due to mass effect from the adjacent hilar lymphadenopathy. However, no filling defects within the pulmonary arteries to suggest a pulmonary embolus. A right Port-A-Cath terminates at the right atrium. Postoperative changes consistent with prior bilateral mastectomies. The mediastinal and bilateral hilar lymphadenopathy is again noted. Normal caliber esophagus. Multiple skeletal metastases are again noted. Focal groundglass airspace opacity within the right lung apex with interlobular septal thickening has slightly progressed. Diffuse interstitial thickening within the right lung which could represent lymphangitic spread of tumor. There are scattered irregular densities/nodules with the largest in the right upper lobe measuring 1.1 cm on image 199. These likely represent areas of metastatic disease. Focal peripheral consolidation within the base of the left lower lobe on image 93 measuring 4.7 cm. This is also u nchanged. This does not demonstrate significant FDG uptake on the prior PET scan and therefore may represent atelectasis. No pneumothorax. IMPRESSION: 1. No evidence for pulmonary embolus. There is mild mass effect along the right lobar pulmonary arteries due to the right hilar lymphadenopathy. 2. Redemonstration of extensive metastatic disease within the chest which includes the mediastinal/hilar lymphadenopathy, scattered pulmonary nodules, and skeletal metastatic disease. 3. Hepatic and adrenal gland metastases are again noted. 4. Trace right pleural effusion, unchanged. 5. Interstitial thickening within the right lung remains unchanged and is concerning for lymphangitic spread of tumor. 6. Slight progression of the groundglass airspace opacities and interlobular septal thickening within the right lung apex. This nonspecific could be due to post radiation change or a superimposed pneumonitis. ACT 112: Negative or not required by law. Electronically signed by: Gary Mcneal M.D. 11/17/2020 11:30 AM EKG - NSR, no ST changes Code Status & VTE Plan Code Status full VTE Prophylaxis Plan VTE Prophylaxis will be ordered: Yes PG Care Time/CCT Total # of Minutes Spent Total Time Spent with Patient: Total time spent is greater than 50% in coordination of care (as documented) at patient's floor/unit and/or counseling patient: Coding Level of Care Code 98564 Initial Inpt Care Lvl 2 Diagnoses Dyspnea R06.00 Breast cancer metastasized to brain C50.919; C79.[address] scan, chest R93.89 Lung metastases C78.00 Pneumonia J18.9 Hypoxia R09.02 Candidiasis of mouth and esophagus B37.81; B37.0 Cranial nerve palsy G52.9 Thrombocytopenia D69.6 Abnormal LFTs R94.5 Elevated creatine kinase level R74.8 DVT prophylaxis Z29.9
[2020-11-17 14:46] LABS: Appearance Urine Clear (Clear); Bacteria Urine Automated Negative (Negative); Bilirubin Urine Negative (Negative); Blood Urine Negative (Negative); Color Urine Yellow; Epithelial Cell Urine Auto >30 /lpf (0-5); Glucose Urine UA Negative (Negative); Ketones Urine Negative (Negative); Leukocyte Esterase Urine Trace (Negative); Nitrite Urine Negative (Negative); Protein Urine Negative (Negative); RBC Urine Automated 0-4 /hpf (0-4); Specific Gravity Urine > 1.045 (1.000-1.030); Urobilinogen Urine Negative (Negative)
[2020-11-17] MEDS ORDERED: PANTOprazole 40 MG TAB PO STA (16:58)
[2020-11-17] MEDS ORDERED: ONDANSETRON INJ 2 MG/ML 2 ML VIAL IV PRN (16:58)
[2020-11-17] MEDS: BENZONATATE 100 MG CAPSULE PO SCH ×2 (17:39→21:13)
[2020-11-17] MEDS: NYSTATIN SUSP 500,000 U/5 ML UDC PO SCH ×2 (17:41→21:15)
[2020-11-17] MEDS: dexAMETHasone 4 MG in SYRINGE 0 ML IV SCH (17:43)
[2020-11-17] MEDS: LEVALBUTEROL 1.25MG/0.5ML NEB NEB SCH (19:51)
[2020-11-17] MEDS ORDERED: CEROVITE ADV FORMULA TAB PO SCH (21:00)
[2020-11-17] MEDS: POLYETHYLENE (MIRALAX) 17 GM PACK PO SCH (21:12)
[2020-11-17] MEDS: SENNA 8.6 MG TAB PO SCH (21:12)
[2020-11-17] MEDS: guaiFENesin 600 MG TABCR PO SCH (21:13)
[2020-11-17] MEDS: levETIRAcetam 500 MG TAB PO SCH (21:15)
[2020-11-18] MEDS ORDERED: HEPARIN 100 UNIT/ML 5ML FLUSH FLUSH PRN (00:05)
[2020-11-18] MEDS ORDERED: HEPARIN 100 UNIT/ML 5ML FLUSH ONE (00:17)
[2020-11-18] MEDS: dexAMETHasone 4 MG in SYRINGE 0 ML IV SCH ×3 (00:19→11:41)
[2020-11-18] MEDS: LEVALBUTEROL 1.25MG/0.5ML NEB NEB SCH ×3 (01:11→13:30)
[2020-11-18] MEDS: SENNA 8.6 MG TAB PO SCH (08:01)
[2020-11-18] MEDS: BENZONATATE 100 MG CAPSULE PO SCH ×2 (08:02→13:56)
[2020-11-18] MEDS: levETIRAcetam 500 MG TAB PO SCH (08:03)
[2020-11-18] MEDS: guaiFENesin 600 MG TABCR PO SCH (08:04)
[2020-11-18] MEDS: NYSTATIN SUSP 500,000 U/5 ML UDC PO SCH ×2 (08:05→13:56)
[2020-11-18] MEDS: POLYETHYLENE (MIRALAX) 17 GM PACK PO SCH (08:06)
[2020-11-18] MEDS ORDERED: ADVANCED PROBIOTIC 1250 MG CAPSULE PO SCH (09:00)
[2020-11-18] MEDS ORDERED: PANTOprazole 40 MG TAB PO SCH (09:00)
[2020-11-18 09:08] LABS: Basophils # (auto) 0.03 K/uL (0-0.2); Basophils % (auto) 0.1 %; Hematocrit (blood only) 45.9 % (37-47); Hemoglobin 15.3 g/dL (12.0-16.0); Immature Granulocytes # (auto) 0.69 K/uL (0.00-0.02); Immature Granulocytes % (auto) 3.3 %; Lymphocytes # (auto) 1.45 K/uL (1.2-3.4); Mean Corpuscular Hemoglobin 29.8 pg (25-34); Mean Corpuscular Hgb Conc 33.3 g/dL (32-36); Mean Corpuscular Volume 89.3 fL (80-100); Mean Platelet Volume 10.9 fL (7.4-10.4); Monocytes % (auto) 4.8 %; Neutrophils # (auto) 17.56 K/uL (1.4-6.5); Neutrophils % (auto) 84.8 %; Platelet Count 123 K/uL (130-400); RDW Coefficient of Variation 13.8 % (11.5-14.5); Red Blood Count 5.14 M/uL (4.2-5.4); White Blood Count 20.73 K/uL (4.8-10.8)
[2020-11-18 09:50] LABS: Albumin Globulin Ratio 0.7 (0.9-2); Albumin Level 2.9 gm/dl (3.4-5.0); BUN Creatinine Ratio 19.2 (10-20); Bilirubin,Total 0.5 mg/dl (0.2-1); Calcium 8.1 mg/dl (8.5-10.1); Creatinine Clr Calc Pharmacy 56.8 ml/min; Est GFR (African American) 65.9 ml/min; Est GFR (Non-African American) 56.9 ml/min; Potassium 4.4 mmol/L (3.5-5.1); Total Protein 6.9 gm/dl (6.4-8.2)
[2020-11-18] MEDS ORDERED: levoFLOXacin 750 MG TAB PO SCH (11:00)
--- NOTE | 2020-11-18 12:12 | Pulmonary Consultation ---
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 Shortness of breath: Multifactorial related to underlying malignancy and lymphangitic carcinomatosis within her lung tissue. Unfortunately, there is no specific therapy for this. 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 I do not suspect infectious etiology. Leukocytosis likely related t o Decadron. Reasonable to continue with as needed nebulizers. Can consider the addition of Breo Ellipta. Recommend home oxygen qualification study prior to discharge. Management of malignancy per oncology. If bronchoscopy is specifically requested by oncology to rule out infectious etiology, then we will be happy to accommodate. I would recommend the initiation of Bactrim prophylaxis every Tuesday, Tuesday and Tuesday if she is to be on equivalent doses of 20 mg prednisone for greater than 2 weeks. Thank you for the consultation. Please call with questions. Dyspnea type: dyspnea on exertion Qualified Code(s): R06.00 - Dyspnea, unspecified (2) Lung metastases: History of Present Illness Reason for Consultation: Lymphangitic carcinomatosis Attending Physician: Lisa Perez MD History of Present Illness 55-year-old female with a history of metastatic breast cancer (metastatic brain disease) who presented to the hospital due to dry cough and orthopnea. She notes shortness of breath with walking short distances. She denied any chest pain. She has been receiving whole brain radiation for multiple metastatic brain lesions. She is on outpatient Decadron. She was started on Decadron in the hospital as well. PET/CT chest reviewed from 11/10/2020 which demonstrated progressive groundglass airspace opacities within the right lung apex demonstrating mild FDG uptake. Multiple enlarged FDG avid mediastinal and bilateral hilar lymph nodes were noted. FDG avid right upper lobe lobe lung nodules noted as well. Interstitial thickening coarsening was noted with concerns for lymphangitic spread of disease. Chest CTA completed yesterday with evidence of extensive metastatic disease throughout the chest and again concern for possible lymphogenic carcinomatosis. Hepatic and adrenal gland metastatic disease was described as well. Her last chemotherapy treatment was 2 years ago. No recent radiation therapy in her chest. 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 Brother Family history of diabetes mellitus Unknown Bile duct carcinoma Denies family history of Breast cancer Social History Smoking Status: Former smoker Tobacco Type: Cigarettes Years Smoked: 20; Cigarettes Per Day: 20; Smoking End Date: 2017; Second Hand Exposure: No; Do You Dip or Chew Tobacco: No; Tobacco Cessation Education Requested by Patient: No Hx Alcohol Use: No Hx Substance Use: No Preferred Language: Tajik Communication Ability: Effective Visual Impairment: No Limitations Hearing Ability: Normal Payroll And Benefits Specialist Required: No Beliefs That Will Affect Care: None marital status: Current Living Situation: Spouse Current Living Situation Comment: lives with current occupational status: employed 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 How many Children do You have: 3 How many Children do You have Comment: 1 is (had Trisomy 18) Other Information That Helps Us Care for You: No Feels Safe at Home: Yes during the past year weight has: remained stable Assistive Devices: None Review of Systems Review of Systems: All systems reviewed & are unremarkable except as noted in HPI & below Physical Exam Constitutional: WD/WN, vitals as above ENMT: external ear and nose normal, oropharynx normal Respiratory: normal respiratory effort, lungs clear to auscultation Cardiovascular: RRR, no murmur, no edema Gastrointestinal (Abdomen): normal bowel sounds, soft, nontender, no hepatosplenomegaly Musculoskeletal: no cyanosis or clubbing, extremities motor strength 5/5 Skin: no rashes, warm and dry Neurologic: Cranial nerve palsy noted with right facial droop Psychiatric: A+Ox3, euthymic affect Results & Data Results & Data ([facility]) Vital Signs (Past 12 Hours) Vital Signs Temp Pulse Pulse Resp BP Pulse Ox 11/18/20 11:47 97.7 F 95 H 20 120/85 95 11/18/20 08:19 68 11/18/20 07:54 97.3 F L 78 18 108/71 94 11/18/20 07:05 92 H 18 93 11/18/20 03:02 97.5 F L 77 18 115/79 93 11/18/20 01:11 76 18 95 PG Care Time/CCT Total # of Minutes Spent Total Time Spent with Patient: Total time spent is greater than 50% in coordination of care (as documented) at patient's floor/unit and/or counseling patient: Coding Level of Care Code 42887 Inpt Consult Level 4 Diagnoses Dyspnea R06.00 Dyspnea type: dyspnea on exertion Lung metastases C78.00
[2020-11-18] MEDS ORDERED: LORazepam 0.5 MG TAB PO PRN (14:44)
[2020-11-18 15:33] VITALS: BP 129/88; TEMP 97.9
--- NOTE | 2020-11-18 17:04 | Discharge Summary ---
Date of Service November 18, 2020 Admission HPI Per Admitting Provider 55yo female with stage 4 breast ca presents with progressive FOSTER for about 1 week. She has had associated dry cough, PND, and orthopnea. No weight gain. no chest pain or chest discomfort. no prior h/o chronic lung disease. has albuterol inhaler at home but hasn't helped her symptoms. no fevers. good appetite. no sick contacts. today was 3rd day of whole brain radiation for recently diagnosed multiple brain mets. follows with Dr Pandey in the rad onc clinic. she is hopeful she can receive her radiation tomorrow while hospitalized. lastly, recently started on decadron TID for her brain mets. Principal Diagnosis Pneumonia, Hypoxia, Metastatic breast CA Discharge Exam Constitutional WD/WN, vitals as above Eyes + anicteric sclerae ENMT external ear and nose normal, oropharynx normal Neck trachea midline, no thyromegaly Respiratory normal respiratory effort Auscultation: + crackles (right upper lung field); no wheezes Cardiovascular RRR, no murmur, no edema Chest (Breasts) Chest: normal inspection of chest Gastrointestinal (Abdomen) normal bowel sounds, soft, nontender, no hepatosplenomegaly Musculoskeletal Extremities: extremities normal to inspection; no cyanosis and no clubbing Skin no rashes, warm and dry Neurologic moves all extremities and awake; + CN's not intact (left facial droop) Psychiatric A+Ox3, euthymic affect Lymphatic no lymphedema Discharge Data Allergies Allergy/AdvReac Type Severity Reaction Status Date / Time No Known Allergies Allergy Verified 11/24/20 08:13 Consultations 11/17/20 12:34 ED Decision to Admit Stat 11/17/20 16:58 Consult Pulmonology Routine Ordered Studies 11/17/20 09:22 CT angio chest PE protocol Stat Chest CTA 11/17/20 09:22 CHEST CTA for PULMONARY ARTERIES CT DOSE: 454.21 mGy.cm HISTORY: Shortness of breath. Difficulty breathing. TECHNIQUE: Multiaxial CT images of the chest were performed following the intravenous administration of contrast to evaluate the pulmonary arteries. Maximal intensity projection images were also obtained. A dose lowering technique was utilized adhering to the principles of ALARA. COMPARISON STUDY: PET CT 11/10/2020. FINDINGS: Multiple hepatic and adrenal glands metastases are again noted. There is a trace right pleural effusion, unchanged. Normal caliber thoracic aorta with no evidence for dissection. The heart is normal in size. No pericardial effusion. Mild narrowing of the right lobe are pulmonary arteries due to mass effect from the adjacent hilar lymphadenopathy. However, no filling defects within the pulmonary arteries to suggest a pulmonary embolus. A right Port-A-Cath terminates at the right atrium. Postoperative changes consistent with prior bilateral mastectomies. The mediastinal and bilateral hilar lymphadenopathy is again noted. Normal caliber esophagus. Multiple skeletal metastases are again noted. Focal groundglass airspace opacity within the right lung apex with interlobular septal thickening has slightly progressed. Diffuse interstitial thickening within the right lung which could represent lymphangitic spread of tumor. There are scattered irregular densities/nodules with the largest in the right upper lobe measuring 1.1 cm on image 199. These likely represent areas of metastatic disease. Focal peripheral consolidation within the base of the left lower lobe on image 93 measuring 4.7 cm. This is also unchanged. This does not demonstrate significant FDG uptake on the prior PET scan and therefore may represent atelectasis. No pneumothorax. IMPRESSION: 1. No evidence for pulmonary embolus. There is mild mass effect along the right lobar pulmonary arteries due to the right hilar lymphadenopathy. 2. Redemonstration of extensive metastatic disease within the chest which includes the mediastinal/hilar lymphadenopathy, scattered pulmonary nodules, and skeletal metastatic disease. 3. Hepatic and adrenal gland metastases are again noted. 4. Trace right pleural effusion, unchanged. 5. Interstitial thickening within the right lung remains unchanged and is concerning for lymphangitic spread of tumor. 6. Slight progression of the groundglass airspace opacities and interlobular septal thickening within the right lung apex. This nonspecific could be due to post radiation change or a superimposed pneumonitis. ACT 112: Negative or not required by law. Electronically signed by: Gary Mcneal M.D. 11/17/2020 11:30 AM Hospital Course (1) Dyspnea: CTA chest reviewed - most of the findings are due to metastatic disease from her breast cancer. There may be a component of pneumonia in the right lung but uncertain. No PEs. No large pleural effusion. appreciate consult from Dr Polk from pulmonary-does not suspect infectious etiology, could be lymphanigitic spread of CA,start prophylactic Bactrim MWF while on high dose steroids for brain mets, and advised home O2 qualification test. No need for bronchoscopy at this time unless Oncology requests to rule out infectious etiology -continue dexamethasone to 4mg tid as before -complete abx in the form of levaquin 750mg daily x 7 day course empirically for PNA I don't see any evidence of complicating CHF. -qualified fo rhome O2-this was delivered prior to discharge stable for dc to home (2) Breast cancer metastasized to brain: today was day #4 of 10 of whole brain xrt. follows with Dr Pandey. see scanned MRI report in chart for details re: her brain mets. 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 fortunately her mind is clear and memory is intact. cont steroids. cont keppra for seizure prophy. (3) Abnormal CT scan, chest: most findings on Chest CT today are likely due to her cancer itself. doubt radiation pneumonitis. 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 plts 123 on day of dc trend CBC as outpt with Oncology (10) Abnormal LFTs: likely 2nd to worsening liver mets trend as outpt (11) Elevated creatine kinase level: etiology? no recent fall or musculoskeletal injury not on meds to cause such maybe from radiation? improved to almost normal by next day (12) DVT prophylaxis: Lovenox Dispo-dc to home Total Time Total Time Spent Total Time Spent (In Minutes): 35 min Discharge Plan Discharge Items Patient Disposition: Home - Self-Care Reason For Visit: FOSTER, Hypoxia, Possible R-sided Pneumonia Discharge Diagnosis: Hypoxia, Suspected pneumonia Condition on Discharge: Fair Activity: Resume your previous activity Non-emergency contact: Primary Care Provider Call non-emergency contact if: you have any medication questions, your symptoms worsen, you have a fever and your temperature is above 101 Follow-up/Referrals: Nino Jean DO [Primary Care Provider] - (Follow up within 1-2 weeks.) Diet: Regular Addtl Attending Provider Instructions: Please finish out the course of Levaquin x 5 more days in case of infectious pneumonia. The Bactrim DS is to be taken once daily ONLY on Tuesday, Tuesday, and Tuesday each week as long as you're on the dexamethasone. You can continue to use the albuterol nebulizer as needed. You will need to use oxygen at 2 L via the nasal cannula ONLY WITH EXERTION. You can take lorazepam as needed for anxiety. Please keep your appointments for continued radiation therapy and with Madeleine Rice for Oncology this week. Pending Studies at Discharge: Yes Stand-Alone Forms: My [facility] Medications and DC Order Prescriptions: New levofloxacin 750 mg Tablet 750 mg PO DAILY@1100 Qty: 5 RF: 0 nystatin 100,000 unit/mL Suspension 5 ml PO QID 12 Days Qty: 240 RF: 0 sulfamethoxazole-trimethoprim [Bactrim DS] 800-160 mg Tablet 1 tab PO MoWeFr@0900 Qty: 12 RF: 0 lorazepam 0.5 mg Tablet 0.5 mg PO Q8 PRN (Reason: anxiety) Qty: 14 RF: 0 Breo Ellipta 100-25 mcg/dose blister with device 1 inh inhalation DAILY Qty: 28 RF: 0 albuterol sulfate 2.5 mg /3 mL (0.083 %) solution for nebulization 2.5 mg inhalation Q8H PRN (Reason: cough or wheezing) Qty: 75 RF: 0 Continued albuterol sulfate 90 mcg/actuation HFA aerosol inhaler 2 puff inhalation QID PRN (Reason: Shortness Of Breath) RF: 0 levetiracetam [Keppra] 500 mg tablet 500 mg PO BID RF: 0 dexamethasone 4 mg tablet 4 mg PO TID RF: 0 Women's Multivitamin Gummies 200 mcg Tablet,Chewable 200 mcg PO PM RF: 0 Discharge Orders: Discharge Order (Routine); Ordered 11/18/20 Ordered By: Lisa Perez Admission Data Admit Date/Time: 11/17/20 14:00 Attending Provider: Lisa Perez Admit Provider: Star Borden Primary Care Provider: Nino Jean Other Providers: Jorge Polk Other Interventions: Discharge Summary Assessment (RN) Last Done: 11/18/20 17:25 Coding Level of Care Code D/C Day Management >30 mins Diagnoses Dyspnea R06.00 Dyspnea type: dyspnea on exertion Breast cancer metastasized to brain C50.919; C79.[address] scan, chest R93.89 Lung metastases C78.00 Pneumonia J18.9 Hypoxia R09.02 Candidiasis of mouth and esophagus B37.81; B37.0 Cranial nerve palsy G52.9 Thrombocytopenia D69.6 Abnormal LFTs R94.5 Elevated creatine kinase level R74.8 DVT prophylaxis Z29.9
[2020-11-18 17:26] VITALS: PULSE 99; O2SAT 90
--- NOTE | 2020-11-18 22:29 | Emergency Department Note ---
Impression & Plan Lung metastases, Pneumonia, Breast cancer metastasized to brain, Dyspnea, Cranial nerve palsy, Thrombocytopenia ED Provider Note NAME: LYNN DANIELS AGE: 55 SEX: F : 1965 ARRIVES VIA: Walk-In INFORMANT: Patient, ED PROVIDER(S): Nino Silva MD CHIEF COMPLAINT: Shortness of Breath HPI: This 55-year-old female who presents emergency department complaining shortness of breath. The patient has a history of lung metastasis from right breast cancer as well as brain metastasis. The patient reports she has been short of breath for the past week. It gets worse anytime the patient exerts herself such as going to the bathroom. The patient reports she cannot walk more than 4 feet without becoming short of breath. Patient's daughter also notes that the patient is currently receiving radiation and they just came from radiation today. She reports nothing seems to make the shortness of breath better except for rest. She has not taken any medications prior to arrival. ROS: See above HPI for pertinent positives & negatives. A total of 10 systems reviewed and were otherwise negative. PAST MEDICAL HISTORY: See Below PAST SURGICAL HISTORY: See Below FAMILY HISTORY: See Below SOCIAL HISTORY: See Below HOME MEDICATIONS: See Below ALLERGIES: See Below VITALS: See Below PHYSICAL EXAMINATION: VITAL SIGNS - Vital signs and nursing notes were reviewed. GENERAL - 55-year-old female appearing stated age who is in no acute distress. Communicates well with provider and answers questions appropriately. SKIN - Without rashes. HEAD - NC/AT. EYES - PERRL with EOMI bilaterally. Sclera anicteric. Palpebral conjunctiva pink and moist with no injection noted. EARS - No deformities of external structures noted on gross examination bilaterally. NOSE - Midline and without cyanosis. No epistaxis or purulent drainage noted. Septum midline without deviation or septal hematoma noted. MOUTH/OROPHARYNX - Without perioral cyanosis. Buccal mucosa pink and moist and without leukoplakia. Tongue midline with equal elevation of palate bilaterally. No tonsillar hypertrophy, erythema, or exudates noted. NECK - Neck with FROM. Supple to palpation. No nuchal rigidity. LUNGS - Chest wall symmetric without accessory muscle use, intercostals retractions, or central cyanosis. Normal vesicular breath sounds CTA B/L. No wheezes, rales, or rhonchi appreciated. CARDIAC - RRR with S1/S2. No murmur, rubs, or gallops appreciated. ABDOMEN - Abdominal contour without pulsations or visible masses. BS normoactive all four quadrants. No tenderness, palpable masses, hepatosplenome oxana, or ascites noted. EXTREMITIES - No clubbing or peripheral cyanosis. No pretibial edema present. +3/5 radial, posterior tibial, and dorsalis pedis pulses palpated throughout. +5/5 strength noted in UE/LE bilaterally. NEUROLOGIC - Cranial nerves II through XII grossly intact. Sensory intact to light touch throughout. Patellar reflexes +2/4. PSYCH - A&Ox3 and cooperates fully with examiner. Pt is very pleasant and interacts well with examiner. MEDICAL DECISION MAKING: Patient was seen and evaluated as above in room B12. Review was performed of nursing notes and vital signs. I did review pertinent previous visits and patient history. After obtaining a thorough history and physical examination the above work up was performed. This is a 55-year-old female who presents emergency department complaining of shortness of breath. The patient is currently shaving radiation therapy. She does have an elevation in her white blood cell count and I am concerned based on her complicated CAT scan that she is suffering from pneumonia. I did discuss the findings with the patient and her daughter of the CAT scan. She was started on broad-spectrum antibiotics and I did discuss the case to the hospital service who did agree to admit the patient. An order was placed for continuous cardiac monitoring. The monitor shows a rate of 99 with Normal Sinus rhythm. The patient was evaluated during a period of high volume and high acuity during the global COVID-19 pandemic, and that diagnosis was suspected/considered upon their initial presentation. Their evaluation, treatment and testing was consistent with current guidelines for patients who present with complaints or symptoms that may be related to COVID-19. Patient was seen while provider was wearing PPE. Triage Nursing notes reviewed. Prior medical records reviewed Vital Signs: reviewed and remarkable for no significant abnormalities Differential diagnosis: Reactive airway disease, pneumonia, pneumothorax, COPD, CHF, infections, cardiac ischemia, pulmonary embolism, musculoskeletal, gastrointestinal, as well as other pathologies. ER treatment provided: See below Diagnostics interpreted by me: ECG: Normal sinus rhythm no ST elevation depression QTC is 450 ventricular rate is 93 no previous EKG available Laboratory studies: As stated above and show below. 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 How many Children do You have: 3 How many Children do You have Comment: 1 is (had Trisomy 18) Feels Safe at Home: Yes during the past year weight has: remained stable Assistive Devices: None Allergies Allergies Allergy/AdvReac Type Severity Reaction Status Date / Time No Known Allergies Allergy Verified 11/17/20 09:49 Home Meds Home Medications Medication Instructions Recorded Confirmed Women's Multivitamin Gummies 200 mcg PO PM 10/22/19 11/17/20 albuterol sulfate 90 mcg/actuation 2 puff INHALATION QID PRN 11/12/20 11/17/20 aerosol inhaler dexamethasone 4 mg tablet 4 mg PO TID 11/12/20 11/17/20 levetiracetam 500 mg tablet 500 mg PO BID 11/12/20 11/17/20 Previous Rx's Medication Instructions Recorded albuterol sulfate 2.5 mg INHALATION Q8H PRN #75 ml 11/18/20 fluticasone furoate-vilanterol 1 inh INHALATION DAILY #28 ea 11/18/20 [Breo Ellipta] levofloxacin 750 mg PO DAILY@1100 #5 tab 11/18/20 lorazepam 0.5 mg PO Q8 PRN #14 tab 11/18/20 nystatin 5 ml PO QID 12 Days #240 ml 11/18/20 sulfamethoxazole-trimethoprim 1 tab PO MoWeFr@0900 #12 tab 11/18/20 [Bactrim DS] Results & Data (ED) Home Medications Current Medication List: was personally reviewed by me Laboratory Data Attestation: I reviewed the patient's lab results. Result diagrams: 11/18/20 08:52 11/18/20 08:52 Lab Results 11/17/20 11/17/20 11/17/20 Range/Units 09:29 09:29 09:29 WBC 18.91 H (4.8-10.8) K/uL RBC 4.93 (4.2-5.4) M/uL Hgb 14.2 (12.0-16.0) g/dL Hct 42.7 (37-47) % MCV 86.6 (80-100) fL MCH 28.8 (25-34) pg MCHC 33.3 (32-36) g/dL RDW Std Deviation 43.1 (36.4-46.3) fL RDW Coeff of Silverio 13.8 (11.5-14.5) % Plt Count 112 L (130-400) K/uL MPV 10.2 (7.4-10.4) fL Neutrophils % (Manual) 91.3 % Lymphocytes % (Manual) 4.3 % Monocytes % (Manual) 0.9 % Metamyelocytes % (Man) 0.9 % Myelocytes % (Man) 2.6 % Neutrophils # (Manual) 17.26 H (1.4-6.5) K/uL Total Absolute Neuts 17.26 H (1.4-6.5) K/uL Lymphocytes # (Manual) 0.81 L (1.2-3.4) K/uL Total Abs Lymphocytes 0.81 L (1.2-3.4) K/uL Monocytes # (Manual) 0.17 (0.11-0.59) K/uL Metamyelocytes # (Man) 0.17 H (0-0) K/uL Myelocytes # (Manual) 0.49 H (0-0) K/uL PT 10.3 (9.0-12.0) Seconds INR 1.0 (0.9-1.1) APTT 20.9 L (21.0-31.0) Seconds PTT Ratio 0.8 Sodium 137 (136-145) mmol/L Potassium 4.2 (3.5-5.1) mmol/L Chloride 102 (98-107) mmol/L Carbon Dioxide 28 (21-32) mmol/L Anion Gap 7.0 (3-11) BUN 21 H (7-18) mg/dl Creatinine 0.53 L (0.6-1.2) mg/dl Est Cr Clr Drug Dosing 118.1 ml/min Est GFR ( Amer) 124.8 ml/min Est GFR (Non-Af Amer) 107.6 ml/min BUN/Creatinine Ratio 40.1 H (10-20) Glucose 86 (70-99) mg/dl Calcium 8.2 L (8.5-10.1) mg/dl Magnesium 2.3 (1.8-2.4) mg/dl Total Bilirubin 0.4 (0.2-1) mg/dl AST 143 H (15-37) U/L ALT 215 H (12-78) U/L Alkaline Phosphatase 178 H (45-117) U/L Total Creatine Kinase 481 H (26-192) U/L CK-MB (CK-2) 1.2 (0.5-3.6) ng/ml CK/CKMB % Calc 0.2 (0-3.0) Troponin I < 0.015 (0-0.045) ng/ml NT-Pro-B Natriuret Pep 74 (0-900) pg/ml Total Protein 6.5 (6.4-8.2) gm/dl Albumin 2.7 L (3.4-5.0) gm/dl Globulin 3.8 (2.5-4.0) gm/dl Albumin/Globulin Ratio 0.7 L (0.9-2) COVID-19 Eval Order SARS-CoV-2 (PCR) (Negative) 11/17/20 11/17/20 Range/Units 09:40 09:40 WBC (4.8-10.8) K/uL RBC (4.2-5.4) M/uL Hgb (12.0-16.0) g/dL Hct (37-47) % MCV (80-100) fL MCH (25-34) pg MCHC (32-36) g/dL RDW Std Deviation (36.4-46.3) fL RDW Coeff of Silverio (11.5-14.5) % Plt Count (130-400) K/uL MPV (7.4-10.4) fL Neutrophils % (Manual) % Lymphocytes % (Manual) % Monocytes % (Manual) % Metamyelocytes % (Man) % Myelocytes % (Man) % Neutrophils # (Manual) (1.4-6.5) K/uL Total Absolute Neuts (1.4-6.5) K/uL Lymphocytes # (Manual) (1.2-3.4) K/uL Total Abs Lymphocytes (1.2-3.4) K/uL Monocytes # (Manual) (0.11-0.59) K/uL Metamyelocytes # (Man) (0-0) K/uL Myelocytes # (Manual) (0-0) K/uL PT (9.0-12.0) Seconds INR (0.9-1.1) APTT (21.0-31.0) Seconds PTT Ratio Sodium (136-145) mmol/L Potassium (3.5-5.1) mmol/L Chloride (98-107) mmol/L Carbon Dioxide (21-32) mmol/L Anion Gap (3-11) BUN (7-18) mg/dl Creatinine (0.6-1.2) mg/dl Est Cr Clr Drug Dosing ml/min Est GFR ( Amer) ml/min Est GFR (Non-Af Amer) ml/min BUN/Creatinine Ratio (10-20) Glucose (70-99) mg/dl Calcium (8.5-10.1) mg/dl Magnesium (1.8-2.4) mg/dl Total Bilirubin (0.2-1) mg/dl AST (15-37) U/L ALT (12-78) U/L Alkaline Phosphatase (45-117) U/L Total Creatine Kinase (26-192) U/L CK-MB (CK-2) (0.5-3.6) ng/ml CK/CKMB % Calc (0-3.0) Troponin I (0-0.045) ng/ml NT-Pro-B Natriuret Pep (0-900) pg/ml Total Protein (6.4-8.2) gm/dl Albumin (3.4-5.0) gm/dl Globulin (2.5-4.0) gm/dl Albumin/Globulin Ratio (0.9-2) COVID-19 Eval Order Covid19 at [facility] SARS-CoV-2 (PCR) NEGATIVE (Negative) Administered Medications Discontinued Medications Benzonatate (Benzonatate 100 Mg Capsule) 100 mg PO TID [place] Stop: 12/17/20 16:57 Last Admin: 11/18/20 13:56 Dose: 100 mg Documented by: [id number] Admin: 11/18/20 08:02 Dose: 100 mg Documented by: [id number] Admin: 11/17/20 21:13 Dose: 100 mg Documented by: [id number] Admin: 11/17/20 17:39 Dose: 100 mg Documented by: [id number] Guaifenesin (Guaifenesin 600 Mg Tabcr) 1,200 mg PO Q12 [place] Stop: 12/17/20 20:59 Last Admin: 11/18/20 08:04 Dose: 1,200 mg Documented by: [id number] Admin: 11/17/20 21:13 Dose: 1,200 mg Documented by: [id number] Heparin Sodium (Porcine) (Heparin 100 Unit/Ml 5ml Flush) 5 ml FLUSH PRN PRN PRN Reason: Flush Stop: 12/18/20 00:04 Last Admin: 11/18/20 17:40 Dose: 5 ml Documented by: [id number] Heparin Sodium (Porcine) (Heparin 100 Unit/Ml 5ml Flush) Confirm Administered Dose 5 ml .ROUTE .STK-MED ONE Stop: 11/18/20 00:18 Last Admin: 11/18/20 00:19 Dose: 5 ml Documented by: [id number] Piperacillin Sod/Tazobactam Sod (Zosyn) 4.5 gm in 120 mls @ 240 mls/hr IV NOW ONE Stop: 11/17/20 12:23 Last Infusion: 11/17/20 12:46 Dose: 0 mls/hr Documented by: [id number] Admin: 11/17/20 12:02 Dose: 240 mls/hr Documented by: [id number] Levofloxacin/Dextrose (Levaquin/D5w) 750 mg in 150 mls @ 100 mls/hr IV NOW STA Stop: 11/17/20 13:23 Last Infusion: 11/17/20 14:44 Dose: 0 mls/hr Documented by: [id number] Admin: 11/17/20 12:47 Dose: 100 mls/hr Documented by: [id number] Dexamethasone 4 mg/ Syringe 1 mls @ 1 mls/min IV Q6H [place] Stop: 12/17/20 17:59 Last Admin: 11/18/20 11:41 Dose: 1 mls/min Documented by: [id number] Admin: 11/18/20 05:48 Dose: 1 mls/min Documented by: [id number] Admin: 11/18/20 00:19 Dose: 1 mls/min Documented by: [id number] Admin: 11/17/20 17:43 Dose: 1 mls/min Documented by: [id number] Ioversol (Optiray 350 500ml) 120 ml IV ONCE ONE Stop: 11/17/20 10:40 Last Admin: 11/17/20 10:39 Dose: 120 ml Documented by: [id number] Lactobacillus Acidoph/Casei/Rhamnos (Advanced Probiotic 1250 Mg Capsule) 2 cap PO DAILY [place] Stop: 12/18/20 08:59 Last Admin: 11/18/20 08:05 Dose: 2 cap Documented by: [id number] Levalbuterol HCl (Levalbuterol Hcl 1.25 Mg/3 Ml Neb) 1.25 mg NEB NOW STA Stop: 11/17/20 09:23 Last Admin: 11/17/20 09:48 Dose: 1.25 mg Documented by: [id number] Levalbuterol HCl (Levalbuterol Hcl 1.25 Mg/3 Ml Neb) 1.25 mg NEB NOW STA Stop: 11/17/20 11:16 Last Admin: 11/17/20 11:43 Dose: 1.25 mg Documented by: [id number] Levalbuterol HCl (Levalbuterol 1.25mg/0.5ml Neb) 1.25 mg NEB Q6R [facility] Stop: 12/17/20 18:59 Last Admin: 11/18/20 13:30 Dose: Not Given Documented by: [id number] Admin: 11/18/20 07:03 Dose: 1.25 mg Documented by: [id number] Admin: 11/18/20 01:11 Dose: 1.25 mg Documented by: [id number] Admin: 11/17/20 19:51 Dose: 1.25 mg Documented by: [id number] Levetiracetam (Levetiracetam 500 Mg Tab) 500 mg PO BID O[place] Stop: 12/17/20 20:59 Last Admin: 11/18/20 08:03 Dose: 500 mg Documented by: [id number] Admin: 11/17/20 21:15 Dose: 500 mg Documented by: [id number] Levofloxacin (Levofloxacin 750 Mg Tab) 750 mg PO DAILY@1100 [facility]; Protocol Stop: 11/24/20 10:59 Last Admin: 11/18/20 11:41 Dose: 750 mg Documented by: [id number] Methylprednisolone (Methylprednisolone 125 Mg/2 Ml Vial) 125 mg IV NOW STA Stop: 11/17/20 09:25 Last Admin: 11/17/20 09:57 Dose: 125 mg Documented by: [id number] Miscellaneous (Nursing Heparin Flush Order) 1 ea N/A ONE ONE Stop: 11/17/20 22:59 Last Admin: 11/18/20 00:07 Dose: Not Given Documented by: [id number] Multivitamins/Minerals (Cerovite Adv Formula Tab) 1 tab PO PM [place] Stop: 12/17/20 20:59 Last Admin: 11/17/20 21:15 Dose: 1 tab Documented by: [id number] Nystatin (Nystatin Susp 500,000 U/5 Ml Udc) 5 ml PO QID [place] Stop: 11/27/20 16:59 Last Admin: 11/18/20 13:56 Dose: 5 ml Documented by: [id number] Admin: 11/18/20 08:05 Dose: 5 ml Documented by: [id number] Admin: 11/17/20 21:15 Dose: 5 ml Documented by: [id number] Admin: 11/17/20 17:41 Dose: 5 ml Documented by: [id number] Pantoprazole Sodium (Pantoprazole 40 Mg Tab) 40 mg PO NOW STA Stop: 11/17/20 16:59 Last Admin: 11/17/20 17:38 Dose: 40 mg Documented by: [id number] Pantoprazole Sodium (Pantoprazole 40 Mg Tab) 40 mg PO QAM [place] Stop: 11/21/20 08:59 Last Admin: 11/18/20 08:03 Dose: 40 mg Documented by: [id number] Polyethylene Glycol (Polyethylene (Miralax) 17 Gm Pack) 17 gm PO DAILY [place] Stop: 12/17/20 20:14 Last Admin: 11/18/20 08:06 Dose: 17 gm Documented by: [id number] Admin: 11/17/20 21:12 Dose: 17 gm Documented by: [id number] Sennosides (Senna 8.6 Mg Tab) 17.2 mg PO QAM [place] Stop: 12/17/20 20:14 Last Admin: 11/18/20 08:01 Dose: 17.2 mg Documented by: [id number] Admin: 11/17/20 21:12 Dose: 17.2 mg Documented by: [id number] Imaging Data Radiologist's Impression: Chest CTA 11/17/20 09:22 CHEST CTA for PULMONARY ARTERIES CT DOSE: 454.21 mGy.cm HISTORY: Shortness of breath. Difficulty breathing. TECHNIQUE: Multiaxial CT images of the chest were performed following the intravenous administration of contrast to evaluate the pulmonary arteries. Maximal intensity projection images were also obtained. A dose lowering technique was utilized adhering to the principles of ALARA. COMPARISON STUDY: PET CT 11/10/2020. FINDINGS: Multiple hepatic and adrenal glands metastases are again noted. There is a trace right pleural effusion, unchanged. Normal caliber thoracic aorta with no evidence for dissection. The heart is normal in size. No pericardial effusion. Mild narrowing of the right lobe are pulmonary arteries due to mass effect from the adjacent hilar lymphadenopathy. However, no filling defects within the pulmonary arteries to suggest a pulmonary embolus. A right Port-A-Ca th terminates at the right atrium. Postoperative changes consistent with prior bilateral mastectomies. The mediastinal and bilateral hilar lymphadenopathy is again noted. Normal caliber esophagus. Multiple skeletal metastases are again noted. Focal groundglass airspace opacity within the right lung apex with interlobular septal thickening has slightly progressed. Diffuse interstitial thickening within the right lung which could represent lymphangitic spread of tumor. There are scattered irregular densities/nodules with the largest in the right upper lobe measuring 1.1 cm on image 199. These likely represent areas of metastatic disease. Focal peripheral consolidation within the base of the left lower lobe on image 93 measuring 4.7 cm. This is also unchanged. This does not demonstrate significant FDG uptake on the prior PET scan and therefore may represent atelectasis. No pneumothorax. IMPRESSION: 1. No evidence for pulmonary embolus. There is mild mass effect along the right lobar pulmonary arteries due to the right hilar lymphadenopathy. 2. Redemonstration of extensive metastatic disease within the chest which includes the mediastinal/hilar lymphadenopathy, scattered pulmonary nodules, and skeletal metastatic disease. 3. Hepatic and adrenal gland metastases are again noted. 4. Trace right pleural effusion, unchanged. 5. Interstitial thickening within the right lung remains unchanged and is concerning for lymphangitic spread of tumor. 6. Slight progression of the groundglass airspace opacities and interlobular septal thickening within the right lung apex. This nonspecific could be due to post radiation change or a superimposed pneumonitis. ACT 112: Negative or not required by law. Electronically signed by: Gary Mcneal M.D. 11/17/2020 11:30 AM Discharge Plan Visit Data Chief Complaint: Respiratory Problems Stated Complaint: HARD TO BREATHE,PLEURAL EFFUSION ED Provider: Nino Silva Discharge Problem: Lung metastases, Pneumonia, Breast cancer metastasized to brain, Dyspnea, Cranial nerve palsy, Thrombocytopenia Patient Disposition: Admitted As Inpatient Condition: Fair Discharge Instructions Interventions: ED Discharge Assessment Last Done: 11/17/20 15:55 Discharge Problem: Lung metastases Qualifiers: Laterality: unspecified laterality Qualified Code(s): C78.00 - Secondary malignant neoplasm of unspecified lung Pneumonia Qualifiers: Pneumonia type: due to unspecified organism Laterality: unspecified laterality Lung location: unspecified part of lung Qualified Code(s): J18.9 - Pneumonia, unspecified organism Breast cancer metastasized to brain Qualifiers: Laterality: unspecified laterality Qualified Code(s): C50.919 - Malignant neoplasm of unspecified site of unspecified female breast Dyspnea Qualifiers: Dyspnea type: unspecified Qualified Code(s): R06.00 - Dyspnea, unspecified
[2020-11-19] MEDS ORDERED: SULFAMETHOXAZOLE/TRIMETHOPRIM DS 800/160MG TAB PO SCH (09:00)
== END 2020-11-18 17:56 | disposition home or self-care (01) | DRG 194 ==
LOC: ED 08:46 → SUATTDRO 14:00 → 2W 14:00